=== PATIENT | female | born 1980 | race Caucasian/White ===

== ENCOUNTER 2018-02-28 21:35 | Inpatient (IN) | payer OTHER ==
[~2018-02-28] VITALS: Ht 157.5 cm; Wt 46.3 kg
[~2018-02-28 21:35] MED LIST: METR1TAB76 PO; VALT1TAB PO
[2018-02-28 21:40] VITALS: BP 101/71; PULSE 153; RESP 18; TEMP 98; O2SAT 99
--- NOTE | 2018-02-28 21:55 | PD ---
HPI Chief Complaint: Psychiatric Symptoms Time Seen by Provider: 21:46 Travel History International Travel<30 days: No Contact w/Intl Traveler<30days: No Traveled to known affect area: No History of Present Illness HPI 37-year-old white female presents emergency department under [place] act by PD. The patient allegedly had taken an unknown unknown quantity of Xanax over the last 2 days as well as threatening to kill herself with a knife earlier today but was disarm by her boyfriend. She states that she has been under increasing stress and anxiety at home. Her 16-year-old son is wanting to move to his father's house. She states that she has raised him and does not feel that her ex- is a suitable parent. She states that she has been under increasing stress with her 2 other children and her boyfriend. She states that she wanted just to escape and sleep when she had taken the extra Xanax. She states that she has not had any alcohol or Xanax today. She denies any homicidal ideation. The patient would not answer when directly questioned whether she was suicidal and surrounding events of the alleged suicide gesture. Patient denies any current medical complaints. She states that she is on her menstrual cycle now. She does not smoke. She states that she does not do drugs. She does drink alcohol on occasion. [facility] Past Medical History Narrative Medical Anxiety, depression, genital herpes, history of substance abuse Anxiety: Yes Diminished Hearing: No Tetanus Vaccination: < 5 Years ?: Not LMP: Now : 3 Para: 3 Past Surgical History Narrative Surgical Tubal ligation Social History Alcohol Use: Yes ("MAYBE 3 TIMES A WEEK OF BEER AND/OR WINE!") Tobacco Use: No Substance Use: No Allergies-Medications (Allergen,Severity, Reaction): Coded Allergies: hydroxyzine (Verified Adverse Reaction, Intermediate, Activation/anger. , 08/29/17) Reported Meds & Prescriptions Reported Meds & Active Scripts Active Metronidazole 500 Mg Tab 500 Mg PO BID Valtrex (Valacyclovir HCl) 1 Gm Tab 1,000 Mg PO DAILY Review of Systems General / Constitutional: No: Fever Eyes: No: Visual changes HENT: No: Headaches Cardiovascular: No: Chest Pain or Discomfort Respiratory: No: Shortness of Breath Gastrointestinal: No: Abdominal Pain Genitourinary: No: Dysuria Musculoskeletal: No: Pain Skin: No Rash Neurologic: No: Weakness Psychiatric: Positive: Anxiety, Depression, Suicidal Ideations, Mood Disorder, Substance Abuse, No: Disorder of Thought, Homicidal Ideation Endocrine: No: Polydipsia Hematologic/Lymphatic: No: Easy Bruising Physical Exam Narrative GENERAL: Well-nourished, well-developed patient. SKIN: Warm and dry. HEAD: Normocephalic and atraumatic. EYES: No scleral icterus. No injection or drainage. ENT: No nasal drainage noted. Mucous membranes pink. Airway patent. NECK: Supple, trachea midline. Moves head freely without obvious discomfort. CARDIOVASCULAR: Regular tachycardic rate and rhythm without murmurs, gallops, or rubs. RESPIRATORY: Breath sounds equal bilaterally. No accessory muscle use. GASTROINTESTINAL: Abdomen soft, non-tender, nondistended. EXTREMITIES: No cyanosis or edema. BACK: Nontender without obvious deformity. No CVA tenderness. NEURO: Patient is alert and oriented. no sensorimotor deficits. Nonfocal. Normal speech. PSYCH: No delusions. No auditory or visual hallucinations. Data Data Last Documented VS Vital Signs Date Time Temp Pulse Resp B/P (MAP) Pulse Ox O2 Delivery O2 Flow Rate FiO2 02/28/18 21:40 98.0 153 18 101/71 (81) 99 Orders Orders Complete Blood Count With Diff (02/28/18 21:46) Comprehensive Metabolic Panel (02/28/18 21:46) Thyroid Stimulating Hormone (02/28/18 21:46) Ed Urine Pregnancytest Poc (02/28/18 21:46) Psych Screen (02/28/18 21:46) Drug Screen, Random Urine (02/28/18 21:46) Alcohol (Ethanol) (02/28/18 21:46) Salicylates (Aspirin) (02/28/18 21:46) Tylenol (Acetaminophen) (02/28/18 21:46) Haloperidol Inj (Haldol Inj) (02/28/18 22:30) Lorazepam Inj (Ativan Inj) (02/28/18 22:30) Labs Laboratory Tests Test 02/28/18 22:30 02/28/18 22:45 Urine Opiates Screen NEG Urine Barbiturates Screen NEG Urine Amphetamines Screen POS Urine Benzodiazepines Screen POS Urine Cocaine Screen NEG Urine Cannabinoids Screen NEG White Blood Count 8.7 TH/MM3 Red Blood Count 4.55 MIL/MM3 Hemoglobin 14.7 GM/DL Hematocrit 41.9 % Mean Corpuscular Volume 92.0 FL Mean Corpuscular Hemoglobin 32.3 PG Mean Corpuscular Hemoglobin Concent 35.2 % Red Cell Distribution Width 12.5 % Platelet Count 242 TH/MM3 Mean Platelet Volume 10.1 FL Neutrophils (%) (Auto) 59.4 % Lymphocytes (%) (Auto) 33.0 % Monocytes (%) (Auto) 4.7 % Eosinophils (%) (Auto) 2.1 % Basophils (%) (Auto) 0.8 % Neutrophils # (Auto) 5.1 TH/MM3 Lymphocytes # (Auto) 2.9 TH/MM3 Monocytes # (Auto) 0.4 TH/MM3 Eosinophils # (Auto) 0.2 TH/MM3 Basophils # (Auto) 0.1 TH/MM3 CBC Comment DIFF FINAL Differential Comment Blood Urea Nitrogen 23 MG/DL Creatinine 1.04 MG/DL Random Glucose 67 MG/DL Total Protein 7.8 GM/DL Albumin 4.3 GM/DL Calcium Level 9.0 MG/DL Alkaline Phosphatase 35 U/L Aspartate Amino Transf (AST/SGOT) 15 U/L Alanine Aminotransferase (ALT/SGPT) 22 U/L Total Bilirubin 0.7 MG/DL Sodium Level 140 MEQ/L Potassium Level 4.3 MEQ/L Chloride Level 105 MEQ/L Carbon Dioxide Level 22.3 MEQ/L Anion Gap 13 MEQ/L Estimat Glomerular Filtration Rate 60 ML/MIN Thyroid Stimulating Hormone 3rd Gen 1.400 uIU/ML Salicylates Level LESS THAN 1.7 MG/DL Acetaminophen Level LESS THAN 2.0 MCG/ML Ethyl Alcohol Level LESS THAN 3 MG/DL MDM Medical Decision Making Medical Screen Exam Complete: Yes Emergency Medical Condition: Yes Medical Record Reviewed: Yes Interpretation(s) Laboratory Tests Test 02/28/18 22:30 02/28/18 22:45 Urine Opiates Screen NEG Urine Barbiturates Screen NEG Urine Amphetamines Screen POS Urine Benzodiazepines Screen POS Urine Cocaine Screen NEG Urine Cannabinoids Screen NEG White Blood Count 8.7 TH/MM3 Red Blood Count 4.55 MIL/MM3 Hemoglobin 14.7 GM/DL Hematocrit 41.9 % Mean Corpuscular Volume 92.0 FL Mean Corpuscular Hemoglobin 32.3 PG Mean Corpuscular Hemoglobin Concent 35.2 % Red Cell Distribution Width 12.5 % Platelet Count 242 TH/MM3 Mean Platelet Volume 10.1 FL Neutrophils (%) (Auto) 59.4 % Lymphocytes (%) (Auto) 33.0 % Monocytes (%) (Auto) 4.7 % Eosinophils (%) (Auto) 2.1 % Basophils (%) (Auto) 0.8 % Neutrophils # (Auto) 5.1 TH/MM3 Lymphocytes # (Auto) 2.9 TH/MM3 Monocytes # (Auto) 0.4 TH/MM3 Eosinophils # (Auto) 0.2 TH/MM3 Basophils # (Auto) 0.1 TH/MM3 CBC Comment DIFF FINAL Differential Comment Blood Urea Nitrogen 23 MG/DL Creatinine 1.04 MG/DL Random Glucose 67 MG/DL Total Protein 7.8 GM/DL Albumin 4.3 GM/DL Calcium Level 9.0 MG/DL Alkaline Phosphatase 35 U/L Aspartate Amino Transf (AST/SGOT) 15 U/L Alanine Aminotransferase (ALT/SGPT) 22 U/L Total Bilirubin 0.7 MG/DL Sodium Level 140 MEQ/L Potassium Level 4.3 MEQ/L Chloride Level 105 MEQ/L Carbon Dioxide Level 22.3 MEQ/L Anion Gap 13 MEQ/L Estimat Glomerular Filtration Rate 60 ML/MIN Thyroid Stimulating Hormone 3rd Gen 1.400 uIU/ML Salicylates Level LESS THAN 1.7 MG/DL Acetaminophen Level LESS THAN 2.0 MCG/ML Ethyl Alcohol Level LESS THAN 3 MG/DL Differential Diagnosis MDM: High Differential diagnoses: Schizophrenia, schizoaffective disorder, bipolar, anxiety, depression, adjustment reaction, mood disorder NOS, ODD, depressive disorder NOS, dementia, dementia with agitation, psychosis NOS, substance induced mood disorder, DMDD, Asperger syndrome, infection,electrolyte abnormality, malingering. Narrative Course Mental health screening discussed with the patient. Psychiatric screen ordered. The patient is noted to have an elevated heart rate. She does not appear to be in any distress. The patient will be monitored. The patient is uncooperative. She is refusing laboratory tests. She is overwhelmed. She is given Haldol 5 mg and Ativan 2 mg IM. This is medical clearance for psychiatric admission, polysubstance abuse Diagnosis Primary Impression: Medical clearance for psychiatric admission Additional Impression: Polysubstance abuse Condition: Stable Arron Corbin Feb 28, 2018 21:55
[2018-02-28] MEDS ORDERED: HALOPERIDOL LACTATE 5 MG/ML AMP IM ONE (22:30)
[2018-02-28] MEDS ORDERED: LORazepam 2 MG/ML VIAL IM ONE (22:30)
[2018-02-28 23:20] LABS: AUTOMATED NEUTROPHIL # 5.1 TH/MM3 (1.8-7.7); BASOPHIL # 0.1 TH/MM3 (0-0.2); BASOPHIL % 0.8 % (0.0-2.0); EOSINOPHIL # 0.2 TH/MM3 (0-0.4); EOSINOPHIL % 2.1 % (0.0-4.0); HEMATOCRIT 41.9 % (35.0-46.0); HEMOGLOBIN 14.7 GM/DL (11.6-15.3); LYMPHOCYTE # 2.9 TH/MM3 (1.0-4.8); MEAN CORPUSCULAR HEMOGLOBIN 32.3 PG (27.0-34.0); MEAN CORPUSCULAR HGB CONC 35.2 % (32.0-36.0); MEAN PLATELET VOLUME 10.1 FL (7.0-11.0); MONO % 4.7 % (0.0-8.0); MONOCYTE # 0.4 TH/MM3 (0-0.9); NEUT % 59.4 % (16.0-70.0); PLATELET COUNT 242 TH/MM3 (150-450); RED BLOOD COUNT 4.55 MIL/MM3 (4.00-5.30); RED CELL DISTRIBUTION WIDTH 12.5 % (11.6-17.2); WHITE BLOOD COUNT 8.7 TH/MM3 (4.0-11.0)
[2018-02-28 23:33] LABS: ALBUMIN 4.3 GM/DL (3.4-5.0); ALT (GPT) 22 U/L (10-53); AST (GOT) 15 U/L (15-37); BICARBONATE 22.3 MEQ/L (21.0-32.0); BLOOD UREA NITROGEN 23 MG/DL (7-18); CHLORIDE 105 MEQ/L (98-107); CREATININE 1.04 MG/DL (0.50-1.00); GLOMERULAR FILTRATION RATE 60 ML/MIN (>89); GLUCOSE,RANDOM 67 MG/DL (74-106); SODIUM (NA) 140 MEQ/L (136-145)
[2018-02-28 23:43] LABS: ALKALINE PHOSPHATASE 35 U/L (45-117); TOTAL BILIRUBIN ADULT 0.7 MG/DL (0.2-1.0); TOTAL PROTEIN 7.8 GM/DL (6.4-8.2)
[2018-03-01 00:10] LABS: ACETAMINOPHEN LESS THAN 2.0 MCG/ML (10.0-30.0)
[2018-03-01 01:58] VITALS: BP 95/58; PULSE 80; RESP 16; O2SAT 97
[2018-03-01 06:26] VITALS: BP 94/64; PULSE 94; RESP 16; O2SAT 99
[2018-03-01] MEDS ORDERED: LORazepam 2 MG/ML VIAL IV PUSH PRN ×4 (08:45)
[2018-03-01] MEDS ORDERED: MAGNESIUM HYDROXIDE SUSP 30 ML CUP PO PRN (08:45)
[2018-03-01] MEDS ORDERED: ALUMINUM/MAGNESIUM/SIMETH 30 ML CUP PO PRN (08:45)
[2018-03-01] MEDS ORDERED: ACETAMINOPHEN 325 MG TAB PO PRN (08:45)
[2018-03-01] MEDS ORDERED: LORazepam 0.5 MG TAB PO PRN (08:45)
[2018-03-01] MEDS ORDERED: LORazepam 1 MG TAB PO PRN (08:45)
[2018-03-01] MEDS ORDERED: LORazepam 2 MG/ML VIAL IM PRN ×2 (08:45)
[2018-03-01] MEDS ORDERED: LORazepam 2 MG TAB PO PRN (08:45)
[2018-03-01] MEDS ORDERED: FLUMAZENIL 0.5 MG/5 ML VIAL IV PUSH PRN (08:45)
[2018-03-01] MEDS ORDERED: NICOTINE 21 MG/24 HR PATCH T-DERMAL SCH (09:00)
[2018-03-01 09:04] VITALS: BP 95/62; PULSE 84; RESP 18; O2SAT 100
--- NOTE | 2018-03-01 15:59 | HHI.HP ---
Provisional Diagnosis Admission Date Mar 01, 2018 at 08:45 [place] I. Adjustment disorder with depressed mood, amphetamine and sedative-hypnotics use disorder, r/o bipolar disorder, manic episode [place] II. Unspecified personality disorder, strong cluster B traits, r/o borderline personality disorder [place] III. No significant medical he [place] IV. Conflicts with her significant mother and also with her son [place] V. 40 Certification of Person's Competence To Provide Express and Informed Consent I have personally examined Carolynn Meza , a person being served at [facility] on, Mar 01, 2018 15:44. Express and informed consent means consent voluntarily given in writing, by a competent person, after sufficient explanation and disclosure of the subject matter involved to enable the person to make a knowing and willful decision without any element of force, fraud, deceit, duress, or other form of constraint or coercion. This person is 18 years of age or older, is not now known to be incompetent to consent to treatment with a guardian advocate, and does not have a health care surrogate or proxy currently making medical treatment decisions. I have found this person to be one of the following: [] Competent to provide express and informed consent, as defined above, for voluntary admission to this facility and is competent to provide express and informed consent for treatment. He/she has the consistent capacity to make well reasoned, willful, and knowing decisions concerning his or her medical or mental health treatment. The person fully and consistently understands the purpose of the admission for examination/placement and is fully capable of personally exercising all rights assured [place] Incompetent to provide express and informed consent to voluntary admission, and this is incompetent to provide express and informed consent to treatment. The person must be transferred to involuntary status and a petition for a guardian advocate filed with the Circuit Court. [x] Refusing to provide express and informed consent to voluntary admission but is competent to provide express and informed consent for treatment. The person must be discharged or transferred to involuntary status. Form shall be completed within 24 hours of a person's arrival at the receiving facility and filed in the clinical record of each person: 1. Admitted on a voluntary basis 2. Permitted to provide express and informed consent to his/her own treatment 3. Allowed to transfer from involuntary to voluntary status 4. Prior to permitting a person to consent to his or her own treatment after having been previously found incompetent to consent to treatment. History of Present Illness Capacity: Has Capacity HPI The patient is 37-year-old woman, domiciled with her boyfriend and 3 children, college student, part-time employed, with psychiatric history of anxiety, depression, no previous psychiatric hospitalizations, one previous suicide attempt, amphetamines and benzodiazepines use disorder, no significant medical history, who presents emergency department under [place] act by PD. The patient allegedly had taken an unknown quantity of Xanax and amphetamine over the last 2 days as well as threatening to kill herself with a knife earlier today but was disarm by her boyfriend who immediately called the police. As per patient mother, Sheeba Meza, , the patient has been making multiple suicidal statements in the last 3-4 days, she has been very irritable, not sleeping, iverson, emotionally unstable in the context of problems with her older son, her ex- and also with her boyfriend. Her mother states that the patient is very impulsive, she had tried to commit suicide in the past, but she has never seen so loud, talking so fast, and acting so erratically. On the psychiatric evaluation the patient is found in her room, at the beginning calm, cooperative, charming, minimizing recent suicide attempt, minimizing psychiatric history, but once is confronted about drug abuse and recent suicide attempt, the patient became emotionally incontinent, very iverson and labile and even disorganized. At the beginning of the interview she was able to explain she has been under increasing stress and anxiety at home. Her 16-year-old son is wanting to move to his father's house. She states that she has raised him and does not feel that her ex- is a suitable parent. She states that she has been under increasing stress with her 2 other children and her boyfriend. She states that she wanted just to escape and sleep when she had taken the extra Xanax. She initially denied using amphetamines, but when confronted with toxicology then she says that she took pills from her boyfriend that were in her house. Once I proposed to the patient that I will keep her for longitudinal observation admission she becomes extremely agitated, verbally explosive, and she was very difficult to redirect verbally. Review of Systems Constitutional: DENIES: Diaphoretic episodes, Fatigue, Fever, Weight gain, Weight loss, Chills, Dizziness, Change in appetite, Night Sweats Endocrine: DENIES: Abnorml menstrual pattern, Heat/cold intolerance, Polydipsia , Polyuria, Polyphagia Eyes: DENIES: Blurred vision, Diplopia, Eye inflammation, Eye pain, Vision loss , Photosensitivity, Double Vision Ears, nose, mouth, throat: DENIES: Tinnitus, Hearing loss, Vertigo, Nasal discharge, Oral lesions, Throat pain, Hoarseness, Ear Pain, Running Nose, Epistaxis, Sinus Pain, Toothache, Odynophagia Respiratory: DENIES: Apneas, Cough, Snoring, Wheezing, Hemoptysis, Sputum production, Shortness of breath Cardiovascular: DENIES: Chest pain, Palpitations, Syncope, Dyspnea on Exertion , PND, Lower Extremity Edema, Orthopnea, Claudication Gastrointestinal: DENIES: Abdominal pain, Black stools, Bloody stools, Constipation, Diarrhea, Nausea, Vomiting, Difficulty Swallowing, Anorexia Genitourinary: DENIES: Abnormal vaginal bleeding, Dysmenorrhea, Dyspareunia, Sexual dysfunction, Urinary frequency, Urinary incontinence, Urgency, Hematuria , Dysuria, Nocturia, Vaginal discharge Musculoskeletal: DENIES: Joint pain, Muscle aches, Stiffness, Joint Swelling, Back pain, Neck pain Integumentary: DENIES: Abnormal pigmentation, Pruritus, Rash, Nail changes, Breast masses, Breast skin changes, Nipple discharge Hematologic/lymphatic: DENIES: Bruising, Lymphadenopathy Immunologic/allergic: DENIES: Eczema, Urticaria Neurologic: DENIES: Abnormal gait, Headache, Localized weakness, Paresthesias, Seizures, Speech Problems, Tremor, Poor Balance Psychiatric: COMPLAINS OF: Mood changes, Suicidal Ideation, DENIES: Anxiety, Confusion, Depression, Hallucinations, Agitation, Homicidal Ideation, Delusions Substance Abuse History Drugs/Alcohol past 12 months Amphetamines and benzodiazepines Past Family Social History Coded Allergies: hydroxyzine (Verified Adverse Reaction, Intermediate, Activation/anger. , 08/29/17) Active Scripts Metronidazole (Metronidazole) 500 Mg Tab, 500 MG PO BID for Infection, #14 TAB 0 Refills Prov:Vera Tracy 08/29/17 Valacyclovir (Valtrex) 1 Gm Tab, 1000 MG PO DAILY for Mgmt Viral Infection, #30 TAB 2 Refills Prov:Vera Tracy 07/23/17 Current Medications Medications (Trade) Dose Ordered Sig/Damien Route Start Time Stop Time Status Last Admin (Ativan) 1 mg Q6H PRN PO 03/01/18 08:45 (Ativan Inj) 1 mg Q6H PRN IM 03/01/18 08:45 (Tylenol) 650 mg Q4H PRN PO 03/01/18 08:45 (Milk Of Magnesia Liq) 30 ml DAILY PRN PO 03/01/18 08:45 (Mag-Al Plus Susp Liq) 30 ml Q6H PRN PO 03/01/18 08:45 (Romazicon Inj) 0.2 mg Q1M PRN IV PUSH 03/01/18 08:45 (Ativan) 1 mg Q4H PRN PO 03/01/18 08:45 (Ativan Inj) 1 mg Q4H PRN IV PUSH 03/01/18 08:45 (Ativan) 2 mg Q2H PRN PO 03/01/18 08:45 (Ativan Inj) 2 mg Q2H PRN IV PUSH 03/01/18 08:45 (Ativan Inj) 2 mg Q1H PRN IV PUSH 03/01/18 08:45 (Ativan Inj) 2 mg Q15M PRN IV PUSH 03/01/18 08:45 Family Psych History No family psychiatric history Social History Patient was born and raised in [facility], she lives in [place] with her boyfriend and 3 kids, she works part-time, 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 Patient's Strengths (min. 2) Family support Physical Exam No tremors, no EPS, no withdrawal, the patient is physically restless and agitated Vital Signs Vital Signs Date Time Temp Pulse Resp B/P (MAP) Pulse Ox O2 Delivery O2 Flow Rate FiO2 03/01/18 09:04 84 18 95/62 (73) 100 Room Air 02/28/18 21:40 98.0 Lab Results Test 02/28/18 22:30 02/28/18 22:45 Urine Opiates Screen NEG Urine Barbiturates Screen NEG Urine Amphetamines Screen POS Urine Benzodiazepines Screen POS Urine Cocaine Screen NEG Urine Cannabinoids Screen NEG White Blood Count 8.7 TH/MM3 Red Blood Count 4.55 MIL/MM3 Hemoglobin 14.7 GM/DL Hematocrit 41.9 % Mean Corpuscular Volume 92.0 FL Mean Corpuscular Hemoglobin 32.3 PG Mean Corpuscular Hemoglobin Concent 35.2 % Red Cell Distribution Width 12.5 % Platelet Count 242 TH/MM3 Mean Platelet Volume 10.1 FL Neutrophils (%) (Auto) 59.4 % Lymphocytes (%) (Auto) 33.0 % Monocytes (%) (Auto) 4.7 % Eosinophils (%) (Auto) 2.1 % Basophils (%) (Auto) 0.8 % Neutrophils # (Auto) 5.1 TH/MM3 Lymphocytes # (Auto) 2.9 TH/MM3 Monocytes # (Auto) 0.4 TH/MM3 Eosinophils # (Auto) 0.2 TH/MM3 Basophils # (Auto) 0.1 TH/MM3 CBC Comment DIFF FINAL Differential Comment Blood Urea Nitrogen 23 MG/DL Creatinine 1.04 MG/DL Random Glucose 67 MG/DL Total Protein 7.8 GM/DL Albumin 4.3 GM/DL Calcium Level 9.0 MG/DL Alkaline Phosphatase 35 U/L Aspartate Amino Transf (AST/SGOT) 15 U/L Alanine Aminotransferase (ALT/SGPT) 22 U/L Total Bilirubin 0.7 MG/DL Sodium Level 140 MEQ/L Potassium Level 4.3 MEQ/L Chloride Level 105 MEQ/L Carbon Dioxide Level 22.3 MEQ/L Anion Gap 13 MEQ/L Estimat Glomerular Filtration Rate 60 ML/MIN Thyroid Stimulating Hormone 3rd Gen 1.400 uIU/ML Salicylates Level LESS THAN 1.7 MG/DL Acetaminophen Level LESS THAN 2.0 MCG/ML Ethyl Alcohol Level LESS THAN 3 MG/DL Mental Status Examination Appearance: Appropriate Consciousness: Alert Orientation: x4 Motor Activity: Normal gait Speech: Unremarkable Language: Adequate Fund of Knowledge: Adequate Attention and Concentration: Adequate Memory: Unremarkable Mood: Angry Affect: Irritable Thought Process & Associations: Intact Thought Content: Appropriate Hallucination Type: None Delusion Type: None Suicidal Ideation: Yes Suicidal Plan: No Suicidal Intention: No Homicidal Ideation: No Homicidal Plan: No Homicidal Intention: No Insight: Poor Judgment: Poor Assessment & Plan Problem List: (1) Adjustment disorder with mixed disturbance of emotions and conduct ICD Codes: F43.25 - Adjustment disorder with mixed disturbance of emotions and conduct Assessment & Plan: On psychiatric evaluation today the patient is irritable, emotionally incontinent, very labile and explosive. The patient minimizes current symptoms of depression and suicidal attempt. Also minimizes the use of amphetamines and benzodiazepines nonprescribed. The patient has recently tried to commit suicide by overdosing with amphetamines and Xanax, also grab a knife to kill herself and as per boyfriend and also her mother and she was quite determined to do it. The patient has been emotionally unstable in the last 3 days, irritable, disorganized, making several suicidal statements in the context of recent conflicts with her ex-, boyfriend and also her 16 years old home. The patient has history of drug addiction, suicidal attempts, poor impulse control, poor and maladaptive coping skills, chaotic interpersonal relationships. Given her current mental state and behavioral dysregulation the patient has an elevated risk of danger to self and she would be admitted in psychiatry for stabilization and safety. Current presentation seems to be secondary to personality pathology in the cluster B spectrum, but a mood and psychotic disorder also needs to be carefully ruled out. Patient will be transferred to 2700 unit. Will consult psychiatry for second opinion. We will start the patient in [facility] protocol. Wellbutrin 75 mg twice daily could be a good alternative for depression and decrease craving of drugs, especially amphetamines. Brief supportive psychotherapy provided. Assessment & Plan Estimated LOS: days Ayan Ramon MD Mar 01, 2018 15:59
[2018-03-01] MEDS: LORazepam 1 MG TAB PO PRN (21:28)
[2018-03-02 09:39] LABS: BICARBONATE 25.8 MEQ/L (21.0-32.0); BLOOD UREA NITROGEN 15 MG/DL (7-18); CALCIUM 9.3 MG/DL (8.5-10.1); CHLORIDE 103 MEQ/L (98-107); CREATININE 0.89 MG/DL (0.50-1.00); GLOMERULAR FILTRATION RATE 71 ML/MIN (>89); GLUCOSE,RANDOM 95 MG/DL (74-106); SODIUM (NA) 138 MEQ/L (136-145)
[2018-03-02 09:40] LABS: CHOLESTEROL 234 MG/DL (120-200); TRIGLYCERIDES 93 MG/DL (42-150)
[2018-03-02 09:42] LABS: HDL CHOLESTEROL 80.5 MG/DL (40.0-60.0); LDL CHOLESTEROL 135 MG/DL (0-99)
--- NOTE | 2018-03-02 12:00 | HHI.PYPN ---
Subjective Remarks This is a request for second opinion. Admission note was reviewed and I agree with the history. Patient was seen and case was discussed with nursing. Patient is pleasant during the interview. Affect is quite anxious. Patient minimizes her suicide attempt. Patient feels that it was an impulsive act secondary to an argument. However, she does admit to various stressors in her family life. Today, she says her affect was a mistake and she no longer has suicidal or homicidal ideation intent or plan. Mental Status Examination Appearance: Appropriate Consciousness: Alert Orientation: x4 Motor Activity: Normal gait Speech: Unremarkable Language: Adequate Fund of Knowledge: Adequate Attention and Concentration: Adequate Memory: Unremarkable Mood: Angry Affect: Anxious Thought Process & Associations: Intact Thought Content: Appropriate Hallucination Type: None Delusion Type: None Suicidal Ideation: No Suicidal Plan: No Suicidal Intention: No Homicidal Ideation: No Homicidal Plan: No Homicidal Intention: No Insight: Poor Judgment: Poor Results Labs Test 03/02/18 08:20 Blood Urea Nitrogen 15 MG/DL Creatinine 0.89 MG/DL Random Glucose 95 MG/DL Calcium Level 9.3 MG/DL Sodium Level 138 MEQ/L Potassium Level 3.8 MEQ/L Chloride Level 103 MEQ/L Carbon Dioxide Level 25.8 MEQ/L Anion Gap 9 MEQ/L Estimat Glomerular Filtration Rate 71 ML/MIN Triglycerides Level 93 MG/DL Cholesterol Level 234 MG/DL LDL Cholesterol 135 MG/DL HDL Cholesterol 80.5 MG/DL Cholesterol/HDL Ratio 2.90 RATIO Vitals/IOs Vital Signs Date Time Temp Pulse Resp B/P (MAP) Pulse Ox O2 Delivery O2 Flow Rate FiO2 03/01/18 09:04 84 18 95/62 (73) 100 Room Air 02/28/18 21:40 98.0 Assessment & Plan Problem List: (1) Adjustment disorder with mixed disturbance of emotions and conduct ICD Codes: F43.25 - Adjustment disorder with mixed disturbance of emotions and conduct Assessment & Plan I agree with the first opinion to continue petition. Criteria include suicide attempt Justification for Cont. Inpt. Continue current treatment plan Casey Veliz DO Mar 02, 2018 12:00
[2018-03-02 15:16] LABS: HEMOGLOBIN A1C 4.6 % (4.3-6.0)
[2018-03-02 17:13] VITALS: BP 106/78; PULSE 83; RESP 16; TEMP 97.2; O2SAT 99
[2018-03-02] MEDS: LORazepam 1 MG TAB PO PRN (20:17)
[2018-03-03 06:38] VITALS: BP 99/57; PULSE 68; RESP 17; TEMP 97.8; O2SAT 97
--- NOTE | 2018-03-03 10:21 | HHI.PYPN ---
Subjective Remarks Patient was seen and case discussed with nursing. Patient continues to be in good behavior. She is bright and cheerful during the interview. She states that her act was impulsive and she is now "better." She denies any suicidal or homicidal ideation intent or plan. She is perseverative on discharge. She has been having productive visits with her boyfriend Mental Status Examination Appearance: Appropriate Consciousness: Alert Orientation: x4 Motor Activity: Normal gait Speech: Unremarkable Language: Adequate Fund of Knowledge: Adequate Attention and Concentration: Adequate Memory: Unremarkable Mood: Angry Affect: Anxious Thought Process & Associations: Intact Thought Content: Appropriate Hallucination Type: None Delusion Type: None Suicidal Ideation: No Suicidal Plan: No Suicidal Intention: No Homicidal Ideation: No Homicidal Plan: No Homicidal Intention: No Insight: Poor Judgment: Poor Results Vitals/IOs Vital Signs Date Time Temp Pulse Resp B/P (MAP) Pulse Ox O2 Delivery O2 Flow Rate FiO2 03/03/18 06:38 97.8 68 17 99/57 (71) 97 03/01/18 09:04 Room Air Assessment & Plan Problem List: (1) Adjustment disorder with mixed disturbance of emotions and conduct ICD Codes: F43.25 - Adjustment disorder with mixed disturbance of emotions and conduct Assessment & Plan Continue current treatment plan Justification for Cont. Inpt. Patient would decompensate in a less restrictive setting Casey Veliz DO Mar 03, 2018 10:21
[2018-03-03 16:54] VITALS: BP 118/70; PULSE 84; RESP 18; TEMP 98.3; O2SAT 99
[2018-03-03] MEDS: LORazepam 1 MG TAB PO PRN (21:03)
[2018-03-04 05:58] VITALS: BP 109/63; PULSE 76; RESP 18; TEMP 98; O2SAT 100
--- NOTE | 2018-03-04 14:12 | HHI.DS ---
Psychiatry Discharge Summary Inpatient Psychiatric care?: Yes Advance Directive: No Reason Not Provided: does not have one Mental Health AdvanceDirective: No Health Care Proxy: No Admission Admission Date Mar 01, 2018 at 08:45 Admission Diagnosis: (1) Adjustment disorder with mixed disturbance of emotions and conduct ICD Code: F43.25 - Adjustment disorder with mixed disturbance of emotions and conduct Brief History The patient is 37-year-old woman, domiciled with her boyfriend and 3 children, college student, part-time employed, with psychiatric history of anxiety, depression, no previous psychiatric hospitalizations, one previous suicide attempt, amphetamines and benzodiazepines use disorder, no significant medical history, who presents emergency department under [place] act by PD. The patient allegedly had taken an unknown quantity of Xanax and amphetamine over the last 2 days as well as threatening to kill herself with a knife earlier today but was disarm by her boyfriend who immediately called the police. As per patient mother, Sheeba Meza, , the patient has been making multiple suicidal statements in the last 3-4 days, she has been very irritable, not sleeping, iverson, emotionally unstable in the context of problems with her older son, her ex- and also with her boyfriend. Her mother states that the patient is very impulsive, she had tried to commit suicide in the past, but she has never seen so loud, talking so fast, and acting so erratically. On the psychiatric evaluation the patient is found in her room, at the beginning calm, cooperative, charming, minimizing recent suicide attempt, minimizing psychiatric history, but once is confronted about drug abuse and recent suicide attempt, the patient became emotionally incontinent, very iverson and labile and even disorganized. At the beginning of the interview she was able to explain she has been under increasing stress and anxiety at home. Her 16-year-old son is wanting to move to his father's house. She states that she has raised him and does not feel that her ex- is a suitable parent. She states that she has been under increasing stress with her 2 other children and her boyfriend. She states that she wanted just to escape and sleep when she had taken the extra Xanax. She initially denied using amphetamines, but when confronted with toxicology then she says that she took pills from her boyfriend that were in her house. Once I proposed to the patient that I will keep her for longitudinal observation admission she becomes extremely agitated, verbally explosive, and she was very difficult to redirect verbally. Tobacco Use In Past 30 Days: No Tobacco Past 30 Days Alcohol Use: Monthly or Less Results Blood Pressure 109 / 63 Vital Signs Date Time Temp Pulse Resp B/P (MAP) Pulse Ox O2 Delivery O2 Flow Rate FiO2 03/04/18 05:58 98.0 76 18 109/63 (78) 100 03/01/18 09:04 Room Air Laboratory Tests Test 03/02/18 08:20 Estimat Glomerular Filtration Rate 71 ML/MIN (>89) Cholesterol Level 234 MG/DL (120-200) LDL Cholesterol 135 MG/DL (0-99) HDL Cholesterol 80.5 MG/DL (40.0-60.0) Laboratory Results Test 03/02/18 08:20 Cholesterol Level 234 MG/DL (120-200) HDL Cholesterol 80.5 MG/DL (40.0-60.0) Hemoglobin A1c 4.6 % (4.3-6.0) LDL Cholesterol 135 MG/DL (0-99) Triglycerides Level 93 MG/DL (42-150) Pending results at discharge: No Medications # of Antipsychotic meds at D/C: 0 Approp Antipsych med options 1 - Minimum of three failed multiple trials of monotherapy. 2 - Documented plan to taper to monotherapy due to previous use of multiple meds OR cross-taper in progress at D/C. 3 - Documentation of augmentation of Clozapine. 4 - Justification other than those listed in allowable values 1-3, document here : Discharge Discharge Date: Mar 04, 2018 Discharge Diagnosis: (1) Adjustment disorder with mixed disturbance of emotions and conduct ICD Code: F43.25 - Adjustment disorder with mixed disturbance of emotions and conduct Pt Condition on Discharge: Stable Discharge Disposition: Discharge Home Discharge Instructions Diet Instructions: As Tolerated, No Restrictions Activities you can perform: Regular-No Restrictions Scheduled Appointment: Rafael Milner Appointment Date: Mar 11, 2018 Appointment Time: 7:30am Discharge Time > 30 minutes Mental Status Examination Appearance: Appropriate Consciousness: Alert Orientation: x4 Motor Activity: Normal gait Speech: Unremarkable Language: Adequate Fund of Knowledge: Adequate Attention and Concentration: Adequate Memory: Unremarkable Mood: Angry Affect: Anxious Thought Process & Associations: Intact Thought Content: Appropriate Hallucination Type: None Delusion Type: None Suicidal Ideation: No Suicidal Plan: No Suicidal Intention: No Homicidal Ideation: No Homicidal Plan: No Homicidal Intention: No Insight: Poor Judgment: Poor Discharge/Advance Care Plan Health Problems: (1) Adjustment disorder with mixed disturbance of emotions and conduct Goals to promote your health * To prevent worsening of your condition and complications * To maintain your health at the optimal level Directions to meet your goals Take your medications as prescribed Follow your dietary instruction Follow activity as directed Keep your appointments as scheduled Take your immunizations and boosters as scheduled If your symptoms worsen call your PCP, if no PCP go to Urgent Care Center or Emergency Room For 09/04 questions related to your inpatient stay or results of tests pending at discharge, please contact Dr. Ayan Ramon at Smoking is Dangerous to Your Health. Avoid second hand smoking Ayan Ramon MD Mar 04, 2018 14:12
== END 2018-03-04 15:45 | disposition home or self-care (01) | DRG 882 ==
LOC: NEPJ 21:35 → NEDA 03-01 08:45 → H260 03-01 09:55
PROVIDERS: ADMIT Psychiatry & Neurology Psychiatry; ATTEND Psychiatry & Neurology Psychiatry
DX: F43.25 Adjustment disorder with mixed disturbance of emotions and conduct (principal); R45.851 Suicidal ideations; F19.20 Other psychoactive substance dependence, uncomplicated; A60.00 Herpesviral infection of urogenital system, unspecified; F41.9 Anxiety disorder, unspecified; F32.9 Major depressive disorder, single episode, unspecified; Z91.5 Personal history of self-harm
CPT/HCPCS: 80048; 80053; 80061; 80307; 83036; 84443; 84703; 85025; 96372; J1630; J2060